=== PATIENT | female | born 1980 | race Caucasian/White ===

== ENCOUNTER 2021-10-10 14:51 | Inpatient (IN) | payer MEDICAID ==
[~2021-10-10] VITALS: Ht 167.6 cm; Wt 93.1 kg
--- NOTE | 2021-10-10 17:51 | EKG ---
[facility] [address] [place], [place] [address] Signed Sinus tachycardia Left axis deviation Anterior infarct , age undetermined Abnormal ECG No previous ECGs available Confirmed by ESTEFANY STALLWORTH MD ([id number]) on 10/10/2021 5:51:44 PM Electronically Signed By: ESTEFANY STALLWORTH MD 10/10/21 175 PATIENT NAME: HÉCTORSARAI CHITO Electrocardiogram DATE OF : 78 PHYSICIAN: ESTEFANY STALLWORTH MD REPORT #: [id number] REPORT IS CONFIDENTIAL AND NOT TO BE RELEASED WITHOUT AUTHORIZATION
--- NOTE | 2021-10-10 17:52 | EKG ---
[facility] [address] [facility] [place] [address] Signed Normal sinus rhythm Left anterior fascicular block Abnormal QRS-T angle, consider primary T wave abnormality Abnormal ECG When compared with ECG of 10-OCT-2021 15:07, (Unconfirmed) No significant change was found Confirmed by ESTEFANY STALLWORTH MD ([id number]) on 10/10/2021 5:51:51 PM Electronically Signed By: ESTEFANY STALLWORTH MD 10/10/21 175 PATIENT NAME: SARAI ANAYA CHITO Electrocardiogram DATE OF : 78 PHYSICIAN: ESTEFANY STALLWORTH MD REPORT #: [id number] REPORT IS CONFIDENTIAL AND NOT TO BE RELEASED WITHOUT AUTHORIZATION
--- NOTE | 2021-10-10 20:29 | NUR ---
DISCUSSED CHLORTHALIDONE 25MG TABLET AVAILABILITY WITH BARRY FROM PHARMACY AND DR STALLWORTH. PER DR STALLWORTH CANCEL ORDER AT THIS TIME.
--- NOTE | 2021-10-10 22:00 | NUR ---
PRIMARY RN REQUESTED MATAMOROS PLACEMENT. pt AGREEABLE AT THIS TIME. pt UP TO VOID AND BACK TO BED. PLACED 16Fr MATAMOROS PER PROTOCOL. DILUTE URINE RETURNED. pt RESTING IN BED. NO REQUESTS AT THIS TIME. CALL LIGHT WITHIN REACH.
--- NOTE | 2021-10-10 22:27 | NUR ---
IN TO UPDATE pt ON VISITOR POLICY. pt VERBALIZED UNDERSTANDING OF POLICY. REPORTED THAT HER MATAMOROS WAS LEAKING. REINFLATED HER MATAMOROS BALLON. FRESH LINENS. LARGE QUANTITY OF URINE OUT, MATAMOROS NOW DRAINING WELL. CALL LIGHT WITHIN REACH. pt SETTLED IN BED.
--- NOTE | 2021-10-10 23:06 | NUR ---
YPT ARRIVED ON UNIT WITH COMPLAINT OF 8/10 PAIN IN ABDOMEN, CHEST, AND HEAD. PT IS NAUSOUS. CONTACTED DR. STALLWORTH FOR GI COCKTAIL AND ZOFRAN. PT GIVEN PRN NORCO AND GI COCKTAIL. CHEST PAIN AND NAUSEA RESOLVED WITHIN 10 MINUTES OF GI COCKTAIL. PAIN REDUCED TO 6/10 WITHIN 1 HOUR POST NORCO. BUMEX DRIP STARTED, MATAMOROS INSERTED, UOP GREATER THAN 2L IN LAST 2.5 HOURS. PT HAS CRACKELS BILATERAL POSTERIOR BASES. O2 SATS DECREASED TO 85% ON RA, PLACED ON 2L VIA NC WITH SATS MAINTAINING 91-95%. PT RESTING QUIETLY WITH EYES CLOSED AT THIS TIME.
--- NOTE | 2021-10-11 01:36 | NUR ---
PT HAS HAD 3900cc UOP. DR. STALLWORTH AWARE AND INSTRUCTED TO PAUSE BUMEX DRIP AT THIS TIME. WILL REASSESS NEED FOR INFUSION IN THE MONRING. BUMEX DRIP STOPPED. WILL CONTINUE TO MONITOR.
--- NOTE | 2021-10-11 02:53 | NUR ---
PT EDUCATED ON IMPORTANCE OF STARTING DAILY WEIGHTS AT HOME AND WHEN TO CALL ME. PT VERBALIZES UNDERSTANDING AND ASKS APPROPRIATE QUESTIONS. WILL CONTINUE TO EDUCATION ON CHF.
--- NOTE | 2021-10-11 07:45 | NUR ---
Report recieved, care of patient assumed at this time.
--- NOTE | 2021-10-11 08:23 | NUR ---
PATIENT AWAKE AT SIDE OF BED. VITALS CHARTED. 250ML WATER PROVIDED. CALL LIGHT IN EASY REACH
--- NOTE | 2021-10-11 08:30 | NUR ---
PATIENTS BREAKFAST C/O BREAKFAST TOO COLD FOR HER LIKING. NEW TRAY ORDERED.
--- NOTE | 2021-10-11 09:12 | NUR ---
ASSESSMENT AND MEDICATION ADMINISTRATION COMPLETED. PT ALERT AND ORIENTED, EATING BREAKFAST, ANSWERING ALL QUESTIONS APPROPRAITELY. DENIES SHORTNESS OF BREATH OR PAIN, BUT DOES STATE NEUROPATHY IN HANDS REMAINS MORE UNCOMFORTABLE THAN HER BASELINE. LUNGS SOUNDS DIMINISHED IN BILATERAL BASES WITH SCATTERED FINE CRACKLES, UPPER AIR SAUCEDO ARE CLEAR. PLAN OF CARE FOR THE DAY ESTABLISHED. CALL LIGHT WITHIN REACH. PT DENIES FURTHER NEEDS AT THIS TIME.
--- NOTE | 2021-10-11 09:49 | NUR ---
PT NOW OM AIR. ENCOURAGED COUGHING AND DEEP BREATHING.
--- NOTE | 2021-10-11 11:29 | NUR ---
PT PLACED BACK ON BUMEX DRIP AFTER BUMEX BOLUS ADMINISTERED (SEE EMAR). PT UPDATED ON PLAN TO STAY ON BUMEX DRIP UNTIL SHE HAS 4 MORE LITERS OF URINARY OUTPUT. MAGNESIUM NOW INFUSING. ALL PT QUESTIONS ANSWERED. CALL LIGHT WITHIN REACH. NO FURTHER NEEDS AT THIS TIME.
--- NOTE | 2021-10-11 12:30 | NUR ---
Update from RN. Pt up in room. May transfer to the floor today. Status is improving.
--- NOTE | 2021-10-11 12:50 | NUR ---
PT AMBULATED TO BATHROOM. NO SHORTNESS OF BREATH WITH EXERTION. PT HAD LARGE BOWEL MOVEMENT. NOW SITTING UP AT SIDE OF BED TO FINISH LUNCH. BUMEX DRIP INFUSING. CALL LIGHT WITHIN REACH. WILL CONTINUE TO MONITOR.
--- NOTE | 2021-10-11 15:34 | NUR ---
ASSESSMNET COMPLETED. BUMEX DRIP DC'D. PT HAS HAD ABOUT 4 L OF URINARY OUTPUT SINCE BUMEX INITIATED. BILATERAL LUNG BASES DIM, NO CRACKLES HEARD ON AUSCULTATION. BREATHING EVEN AND UNLABORED. PT DENIES FEELING SHORT OF BREATH. PT HAS HAD 3 BOWEL MOVEMENTS SINCE MORNING DOSE OF LACTULOSE. ABDOMEN IS SOFT AND NOT DESTENDED EARLIER IN THE SHIFT. MEDICATIONS ADMINISTERED, CALL LIGHT WITHIN REACH. NO FURTHER NEEDS AT THIS TIME.
--- NOTE | 2021-10-11 17:19 | NUR ---
PT OFFERED A SHOWER. PT STATES, "I HAVE A VISITOR ON THE WAY" DISCUSSED VISITOR POLICY FOR COVID POSITIVE PT'S. AT THIS TIME PT REFUSED SHOWER AND STATES, "I DONT KNOW IF IM GOING TO BE ABLE TO STAY HERE IF I CANT HAVE VISITORS." THERAPEUTIC COMMUNICATION. CALL LIGHT WITHIN REACH. WILL CONTINUE TO MONITOR.
--- NOTE | 2021-10-11 18:10 | NUR ---
REPORT GIVEN TO ENRIQUE HOOKS ON THE MEDICAL FLOOR. PT TRANSPORTED BY ENRIQUE HOOKS, ALL BLEONGINGS TRANSPORTED WITH PT.
--- NOTE | 2021-10-11 18:34 | NUR ---
Patient transferred to medical floor from CCU. Patient alert and oriented x4. VItal stable. Patient denies sob and or chest pain. Oriented patient to room and call light. Patient denies needs. Personal supplies and call light within reach.
--- NOTE | 2021-10-11 19:47 | NUR ---
REPORT RECEIVED FROM DAY SHIFT RN. PT LYING IN BED RESTING WITH EYES CLOSED. RESPIRATIONS EVEN. CALL LIGHT IN REACH.
--- NOTE | 2021-10-11 22:00 | NUR ---
PT ALERT AND ORIENTED SITTING UP IN BED WATCHING TV. EVENING ASSESSMENT COMPLETE. SCHEDULED MEDS ADMINISTERD PER EMAR. PRN FOR PAIN ADMINISTERED FOR REPORTED 5/10 NEUROPATHIC PAIN IN BILAT HANDS AND FEET. PT ON RA. DENIES SOB. RESPIRATIONS EVEN. LUNGS DIM. MATAMOROS PATENT WITH CLEAR YELLOW URINE. BLE EDEMA NOTED. DISCUSSED FLUID RESTRICTION WITH PT. PT RECEPTIVE AND WITHIN 1600 ML FR AT THIS TIME. HARD CANDY PROVIDED FOR NICOTINE CRAVINGS, PT REFUSES PRN D/T N/V. PT DENIES QUESTIONS OR CONCERNS. CALL LIGHT IN REACH.
--- NOTE | 2021-10-11 22:46 | NUR ---
CALL LIGHT ANSWERED. IV PUMP ALARMING. DISTAL OCCLUSION. IV ANTIBIOTIC SWITCHED TO LEFT ARM REQUESTED. SANDWICH BOX PROVIDED WITH ALLOTTED WATER. CALL LIGHT IN REACH.
--- NOTE | 2021-10-12 01:24 | NUR ---
PT RESTING IN BED WITH EYES CLOSED. RESPIRATIONS EVEN. CALL LIGHT IN REACH.
--- NOTE | 2021-10-12 05:09 | NUR ---
PT IN BED WITH EYES CLOSED. HOB ELEVATED. RESPIRATIONS EVEN AND UNLABORED. MATAMOROS PATENT WITH CLEAR YELLOW URINE. CALL LIGHT IN REACH.
--- NOTE | 2021-10-12 06:42 | NUR ---
PT SITTING IN RECLINER. VS AND I&O OBTAINED. DAILY WEIGHT OBTAINED. PT REPORTS NEUROPATHIC PAIN 03/13. PRN FOR PAIN ADMINISTERED PER EMAR. PT REMAINS WITHIN 1600 ML FLUID RESTRICTION. IV IN LEFT FOREARM TENDER WITH SLIGHT REDNESS NOTED. IV DC'D WNL. PT DENIES SOB OR CHEST PAIN. PT AMB INDEPENDENTLY IN ROOM TO BR FOR AM CARES. DENIES FURTHER NEEDS. CALL LIGHT IN REACH.
--- NOTE | 2021-10-12 09:53 | NUR ---
THIS RN IN PTS ROOM TO GIVE PT HER MORNING MEDS WITH [facility] LEAD SOFTWARE TEST ENGINEER. PT LONI MCKOY IN CHAIR. PT ALERT AND ORIENTED. PT REPORTS THAT SHE STILL FEELS CONSTIPATED AND WOULD LIKE TO STILL HAVE BM MEDS. THIS RN TO HAVE MIRALAX ORDERED TO KEEP PT "REGULAR" PT REPORTS THAT SHE IS NOT PASSING GAS BUT HER LAST BM WAS 10/11.
--- NOTE | 2021-10-12 10:30 | NUR ---
Spoke with Hyun by phone. She states she lives in a homve with 3 steps. She is currently going through divorce. She would like to keep Rodrigue her as her emergency contact. She is attempting to change to [place] as she was living near [place] and uses [facility] from [facility]> She does not have a pcp and would like assist. She states she was told she needs to get a scales for the STOP LIGHT protocol and weigh daily. States she does not have the money to buy She plans on discharge to home when cleared. Boyfriend, Iván, will drive her home.
--- NOTE | 2021-10-12 11:30 | NUR ---
[facility]a [facility]. Pt scheduled to establish care with Dr. Erica Jimenez on 10/19/21 at 11:15. Called Kain Whalen from [facility] and she will see pt and give her a scales. Pt is working on changing her insurance over.
--- NOTE | 2021-10-12 12:14 | NUR ---
Certified Heart Failure Nurse Notes: Family Resource Specialist- not currently establishe with PCP: not currently established with a PCP. Agrees to follow up with one. respite coordinator is involved. Date of echocardiogram 10/11/21 EF 40-45% Admit Pro BNP elevated Social support system:Lives with her boyfriend and his ex-. She is new to this area. Does not drive due to low vision. Relied on medical transport in her former town. Weight monitoring: No scale present in home. Educated on how to weigh daily/ when to notify PCP Symptom management: Addressed monitoring and reporting changes in weight or symptoms. Her parents both had heart failure and she was familiar with symptoms. Diet: Does cook at home and recognizes she eats processed foods that may have a high sodium content. She would like to have a garden again to grow own produce. Medication routine: She had stopped her medications in past. Believes that stopping insulin and antidepressant was reason she lost 100lbs. Recommended that she discuss concerns of any medications with providers and look at alternatives with them. Tobacco: Reports she does not want to resume smoking and requested that she gets another cessation book that was given to her in CCU. Advanced directive: Not discussed at this initial visit Recommendations prior to discharge: Document ambulation oxygen saturations prior to discharge Absence of orthostatic hypotension. Discharge weight less than admit weight. Discharge BNP less than admit (as per [facility] Heart Failure DC Bundle) Barriers to self-care include:Transporation. Medication belief system. Dietary knowleldge Follow-up plans: Patient agrees to receive a follow up call from this service. Would be welcome for complimentary outpatient heart failure education. Teaching materials given today: Daily weight and symptom monitoring log, [facility] contact information Low Sodium Shopping list. Given [employer] digital scales and 7 day pill reminder box for home use.
--- NOTE | 2021-10-12 15:30 | NUR ---
THIS RN IN PTS ROOM AFTER CEHCKING ON PT AND PT REPORTING THAT SHE WAS HAVING SOME ITCHING AND STATED THAT SHE WAS NOTICING A "RED RASH" ON HER THIGHS. THIS RN NOTED THAT PT DID NOT APPEAR TO HAVE "RED RASH" BUT DID HAVE SPOTS WHERE SHE HAD BEEN ITCHING. THIS RN NOTED SCABS PRESENT ON HER ARMS. THIS RN PROVIDED PT WITH 50MG OF BENADRLY AND TOOK OUT PTS MATAMOROS. PT TOELRATED WELL. NO OTHER NEEDS THIS RN PROVIDED PT WITH HER BELONINGS THAT HER BF BROUGHT HER. THIS RN NOTED THAT PT HAD SNACKS IN A BAG THAT WERE NOT WITHIN PTS SODIUM.
--- NOTE | 2021-10-12 17:21 | NUR ---
OUTPATIENT CASE MANAGER BENITO AND INSTRUCTOR ALIS RN IN ROOM TO GIVE PT SCHEDULED MEDS.
--- NOTE | 2021-10-12 17:30 | NUR ---
PT CALLED TO TELL STAFF THAT DINNER WAS COLD AND SHE DID NOT GET EVERYTHING ON THE MENU. THIS BALLOON DESIGN PRINTER ASKED KITCHEN STAFF WHY THE PT DID NOT RECIEVE THE GRAPES FOR DINNER AND KITCHEN STAFF SAID THERE ARE NO GRAPES TO GIVE TO ANY PT. THE PT WAS NOT HAPPY WITH THE OTHER OPTION OF A FRUIT CUP. PT WAS UPSET AT THE SITUATION, THIS BALLOON DESIGN PRINTER OFFERED TO HAVE ENRIQUE MONTANEZ COME TALK WITH THE PT ABOUT ANY OTHER OPTIONS AVAILABLE TO MAKE THE SITUATION RIGHT. THE PT DECLINED. ENRIQUE MONTANEZ UPDATED ON THE SITUATION.
--- NOTE | 2021-10-12 19:47 | NUR ---
REPORT RECEIVED FROM DAY SHIFT RN. PT LYING IN BED ALERT AND ORIENTED. DENIES NEEDS AT THIS TIME. WHITE BOARD UPDATED. CALL LIGHT IN REACH.
--- NOTE | 2021-10-12 21:45 | NUR ---
EVENING ASSESSMENT COMPLETE. SCHEDULED MEDS ADMINSITERED PER EMAR. PT DROWSY. DENIES PAIN OR NAUSEA. DENIES CHEST PAIN OR SOB. IV ABX INFUSING WNL. PT VOID QS. FRESH WATER PROVIDED. PT REMAINS WITHIN FLUID RESTRICTION. NO QUESTIONS OR CONCERNS AT THIS TIME. CALL LIGHT IN REACH.
--- NOTE | 2021-10-13 01:04 | NUR ---
PT RESTING IN BED. EYES CLOSED. RESPIRATIONS EVEN. CALL LIGHT IN REACH.
--- NOTE | 2021-10-13 04:29 | NUR ---
PT RESTING IN BED WITH EYES CLOSED. RESPIRATIONS EVEN. CALL LIGHT IN REACH.
--- NOTE | 2021-10-13 06:40 | NUR ---
VS AND I&O COMPLETE. DAILY WEIGHT OBTAINED. PRN FOR UPPER AND LOWER EXTREMITY PAIN ADMINISTERED PER EMAR. ICE CHIPS AND CRACKERS PROVIDED.
--- NOTE | 2021-10-13 07:32 | NUR ---
this rn received report from len santiago. pt appears to be resting at this time with respirations noted.
--- NOTE | 2021-10-13 09:00 | NUR ---
PT REPORTING TO GITA NUNEZ THAT HER COFFEE IS COLD. THIS RN HAD HER REMOVE PTS OLD COFFEE AND GIVE HER A NEW HALF CUP OF COFFEE. THIS RN CHECKED ON PT AND PT REPORTS THAT SHE HAS BEEN HUNGRY SINCE SHE GOT ADMITTED. THIS RN EDUCATED PT ABOUT HOW WITH HEART FAILURE SHE NEEDS TO WATCH HER QUANITY IN REGARD TO SODIUM. PT STATES "I'M A SOUTHERN GIRL AND THIS IS REALLY HARD" PT NOT RECEPTIVE TO TEACHING.
--- NOTE | 2021-10-13 09:35 | NUR ---
THIS RN IN PTS ROOM TO GIVE PT HER MORNING MEDS. PT DRESSED. PT STATES THAT SHE IS READY TO LEAVE BUT STATES THAT SHE WILL STAY UNTIL 1100 TO SEE MD. THIS RN UPDATED MD.
[2021-10-13] MEDS ORDERED: LOSARTAN POTASS50 MG PO (10:12)
[2021-10-13] MEDS ORDERED: CARVEDILOL6.25 MG PO (10:12)
[2021-10-13] MEDS ORDERED: LASIX20 MG PO (10:13)
[2021-10-13] MEDS ORDERED: METFORMIN HCL500 MG PO (10:13)
[2021-10-13] MEDS ORDERED: CEPHALEXIN500 MG PO (10:14)
--- NOTE | 2021-10-13 10:15 | NUR ---
PT NOTED TO BE WALKING THE HALLS AT THIS TIME. THIS RN ASKED IF PT WAS LEAVING. PT APPEARED FRAZZLED AND STATES THAT SHE JUST CANT WAIT ANY LONGER. THIS RN UPDATED MD. ABLE TO GET A PRINTED PERSCRIPTION, DISCUSSED WITH PT TO TAKE MEDS AND TO FOLLOW UP WITH NEW PCP. PT TOOK OUT HER OWN IV, NO IV IN PLACE ON DISCHARGE.
--- NOTE | 2021-10-13 10:30 | NUR ---
Pt dressed and standing in the wells. Rn requesting pt wear a mask. Pt stating she has to leave now. Staff are asking if she could wait a few minutes while finishes her prescriptions. Pt stating she has to leave now as her boyfriend is in the parking lot and cannot wait. He needs to return to work. I asked pt if there is anything else she needs and she denies. I gave her the time and date of her new pcp appt and wrote it on her AMA sheet.
== END 2021-10-13 10:15 | disposition left against medical advice (07) | DRG 291 ==
LOC: ED 14:51 → CCU 18:52 → MS 18:52
PROVIDERS: ADMIT Internal Medicine; ATTEND Internal Medicine
PROC: 8E0ZXY6 Isolation (ICD-10-PCS; principal; 2021-10-10)
DX: I11.0 Hypertensive heart disease with heart failure (principal); I50.43 Acute on chronic combined systolic (congestive) and diastolic (congestive) heart failure; U07.1 COVID-19; N10 Acute pyelonephritis; D64.9 Anemia, unspecified; F41.8 Other specified anxiety disorders; M54.9 Dorsalgia, unspecified; G89.29 Other chronic pain; K76.1 Chronic passive congestion of liver; E11.65 Type 2 diabetes mellitus with hyperglycemia; M79.7 Fibromyalgia; K59.00 Constipation, unspecified; F17.210 Nicotine dependence, cigarettes, uncomplicated; G25.81 Restless legs syndrome; Z98.890 Other specified postprocedural states
CPT/HCPCS: 36415; 71045; 71275; 74174; 80048; 80053; 81001; 82728; 83036; 83550; 83735; 83880; 84443; 84484; 84703; 85025; 93005; 93010; 93306; 94667; 94668; 99285-25; 99406; C9803; J0696; J1170; J1650; J1940; J2405; J3475; J3490; Q0163; Q9967; U0003

== ENCOUNTER 2021-10-18 23:37 | Emergency (ER) | payer MEDICAID ==
[~2021-10-18] VITALS: Ht 167.6 cm; Wt 93.0 kg
[~2021-10-18 23:37] MED LIST: CARVEDILOL6.25 MG PO; CEPHALEXIN500 MG PO; LASIX20 MG PO; LOSARTAN POTASS50 MG PO; METFORMIN HCL500 MG PO
--- OUTSIDE RECORDS SUMMARY | 2021-10-18 23:44 | XMS ---
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 Marco has no Care Guidelines for this patient. [place] [facility] MO.) [facility] NOTE: Visits indicate total known visits. ED/C VISIT TRACKING (12 MO.) [facility] COMPLAINT: - SOB 10/10/2021 14:53 [facility] [place] TYPE: Emergency COMPLAINT: - BODY SWELLING,DIFF BREATHING INPATIENT VISIT TRACKING (12 MO.) 10/10/2021 18:52 [facility] [place] TYPE: Medical Surgical COMPLAINT: - CHF DIAGNOSES: - Acute on chronic combined systolic (congestive) and diastolic (congestive) heart failure - Restless legs syndrome - Other specified postprocedural states - Acute on chronic combined systolic (congestive) and diastolic (congestive) heart failure - Heart failure, unspecified - Anemia, unspecified - Nicotine dependence, cigarettes, uncomplicated - Fibromyalgia - Constipation, unspecified - Hypertensive heart disease with heart failure - Type 2 diabetes mellitus with hyperglycemia - Other chronic pain - Restless legs syndrome - Other chronic pain - Type 2 diabetes mellitus with hyperglycemia - Acute pyelonephritis - Fibromyalgia - Other specified anxiety disorders - Anemia, unspecified - Other specified postprocedural states - Dorsalgia, unspecified - Acute pyelonephritis - Chronic passive congestion of liver - COVID-19 - Chronic passive congestion of liver - Constipation, unspecified - Nicotine dependence, cigarettes, uncomplicated - Hypertensive heart disease with heart failure - Other specified anxiety disorders - Dorsalgia, unspecified - COVID-19 [email or web address]
[2021-10-19] MEDS ORDERED: LASIX20 MG PO (01:30)
--- NOTE | 2021-10-19 07:20 | EKG ---
[facility] [address] [place] [address] Signed Sinus tachycardia Possible Left atrial enlargement Left axis deviation Left ventricular hypertrophy with repolarization abnormality ( R in aVL ) Abnormal ECG When compared with ECG of 10-OCT-2021 16:02, No significant change was found Confirmed by JAYDE AVENDAÑO MD ([id number]) on 10/19/2021 7:20:31 AM Electronically Signed By: JAYDE AVENDAÑO MD 10/19/21 0720 PATIENT NAME: MARISOL ANAYA CHITO Electrocardiogram DATE OF : 78 PHYSICIAN: JAYDE AVENDAÑO MD REPORT #: [id number] REPORT IS CONFIDENTIAL AND NOT TO BE RELEASED WITHOUT AUTHORIZATION
--- NOTE | 2021-10-21 12:38 | NUR ---
Hyun Felix she did return my calls today. She states insurance finally paying for medications and she has filled them all. Did attend Dr Jimenez visit and has another visit in November for after her insurance will cover. She is feeling "really good right now". Weight stable since ED visit. Scheduled to come in for HF complimentary education visit Oct 26.
== END 2021-10-19 01:49 | disposition home or self-care (01) ==
LOC: ED 23:37
DX: I50.9 Heart failure, unspecified (principal); E11.9 Type 2 diabetes mellitus without complications; G25.81 Restless legs syndrome; Z88.8 Allergy status to other drugs, medicaments and biological substances
CPT/HCPCS: 36415; 71045; 80053; 81001; 83735; 83880; 84484; 85025; 85610; 93005; 93010; 96374; 96375; 99285-25; J1940; J2270

== ENCOUNTER 2021-12-25 19:17 | Emergency (ER) | payer MEDICAID ==
[~2021-12-25] VITALS: Ht 167.6 cm; Wt 90.7 kg
--- OUTSIDE RECORDS SUMMARY | 2021-12-25 19:24 | XMS ---
PreManage Notification: MARISOL ANAYA Security Media Associate Events No recent Security Events currently on file CRITERIA MET - [facility] - Has Care Guidelines CARE PROVIDERS There are no care providers on record at this time. Marco has no Care Guidelines for this patient. Care History Medical/Surgical 10/21/2021 [facility] Patient was to establish care with Dr. Jimenez on 10/26/2021, but her OHP will not be active until 11/02/2021. I have requested they change date for first available in November 2021. Lucas. VISIT COUNT (12 MO.) [address] [facility]. TOTAL 3 NOTE: Visits indicate total known visits. ED/UCC VISIT TRACKING (12 MO.) 12/25/2021 19:18 [facility] [place] TYPE: Emergency COMPLAINT: - CHEST PAIN 10/18/2021 23:38 [facility] [place] TYPE: Emergency COMPLAINT: - SOB DIAGNOSES: - Restless legs syndrome - Shortness of breath - Heart failure, unspecified - Allergy status to other drugs, medicaments and biological substances - Type 2 diabetes mellitus without complications 10/10/2021 14:53 [facility] [place] TYPE: Emergency [...] anxiety disorders - Dorsalgia, unspecified - COVID-19 [email or web address]
[2021-12-25] MEDS ORDERED: CARVEDILOL6.25 MG PO ×2 (19:29→21:45)
[2021-12-25] MEDS ORDERED: LOSARTAN POTASS50 MG PO ×2 (19:29→21:45)
[2021-12-25] MEDS ORDERED: LASIX20 MG PO (21:45)
[2021-12-25] MEDS ORDERED: POTASSIUM CHLO10 MEQ PO (21:45)
--- NOTE | 2021-12-29 19:05 | EKG ---
[facility] [address] [facility] [place] [address] Signed Sinus tachycardia Possible Left atrial enlargement Left anterior fascicular block Abnormal QRS-T angle, consider primary T wave abnormality Abnormal ECG When compared with ECG of 18-OCT-2021 23:42, No significant change was found Confirmed by ESTEFANY STALLWORTH MD ([id number]) on 12/29/2021 7:04:57 PM Electronically Signed By: ESTEFANY STALLWORTH MD 12/29/21 1905 PATIENT NAME: HÉCTORMARISOL CHITO Electrocardiogram DATE OF : 78 PHYSICIAN: ESTEFANY STALLWORTH MD REPORT #: [id number] REPORT IS CONFIDENTIAL AND NOT TO BE RELEASED WITHOUT AUTHORIZATION
== END 2021-12-25 21:59 | disposition home or self-care (01) ==
LOC: ED 19:17
DX: I11.0 Hypertensive heart disease with heart failure (principal); I50.9 Heart failure, unspecified; F15.10 Other stimulant abuse, uncomplicated; G25.81 Restless legs syndrome; E11.9 Type 2 diabetes mellitus without complications; Z88.6 Allergy status to analgesic agent; Z88.8 Allergy status to other drugs, medicaments and biological substances
CPT/HCPCS: 36415; 71045; 80053; 81001; 83735; 83880; 84484; 85025; 85610; 85730; 93005; 93010; 96374; 96375; 99285-25; A9270; J1885; J1940

== ENCOUNTER 2022-01-08 14:34 | Emergency (ER) | payer MEDICAID ==
[~2022-01-08] VITALS: Ht 167.6 cm; Wt 90.7 kg
[~2022-01-08 14:34] MED LIST changes: +POTASSIUM CHLO10 MEQ PO
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
[2022-01-08] MEDS ORDERED: LOSARTAN POTASS50 MG PO (15:12)
[2022-01-08] MEDS ORDERED: CARVEDILOL6.25 MG PO (15:12)
[2022-01-08] MEDS ORDERED: KLOR-CON 1010 MEQ PO (15:12)
[2022-01-08] MEDS ORDERED: FUROSEMIDE20 MG PO (15:12)
== END 2022-01-08 15:28 | disposition home or self-care (01) ==
LOC: ED 14:34
DX: I11.0 Hypertensive heart disease with heart failure (principal); I50.9 Heart failure, unspecified; Z04.3 Encounter for examination and observation following other accident; E11.9 Type 2 diabetes mellitus without complications; G25.81 Restless legs syndrome; Z88.8 Allergy status to other drugs, medicaments and biological substances; Z79.899 Other long term (current) drug therapy
CPT/HCPCS: 99283

== ENCOUNTER 2022-02-02 07:27 | Emergency (ER) | payer OTHER ==
[~2022-02-02] VITALS: Ht 167.6 cm; Wt 88.5 kg
[~2022-02-02 07:27] MED LIST changes: +FUROSEMIDE20 MG PO; +KLOR-CON 1010 MEQ PO
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
--- NOTE | 2022-02-03 07:15 | EKG ---
[facility] [address] [facility] [place] [address] Signed Normal sinus rhythm Possible Left atrial enlargement Left anterior fascicular block Left ventricular hypertrophy ( R in aVL , Khris product ) Prolonged QT Abnormal ECG When compared with ECG of 25-DEC-2021 19:20, No significant change was found Confirmed by JAYDE AVENDAÑO MD ([id number]) on 02/03/2022 7:14:57 AM Electronically Signed By: JAYDE AVENDAÑO MD 02/03/22 0715 PATIENT NAME: MARISOL ANAYA Electrocardiogram DATE OF : 78 PHYSICIAN: JAYDE AVENDAÑO MD REPORT #: [id number] REPORT IS CONFIDENTIAL AND NOT TO BE RELEASED WITHOUT AUTHORIZATION
== END 2022-02-02 10:25 | disposition home or self-care (01) ==
LOC: ED 07:27
DX: R07.9 Chest pain, unspecified (principal); S60.221A Contusion of right hand, initial encounter; S00.83XA Contusion of other part of head, initial encounter; E11.9 Type 2 diabetes mellitus without complications; I50.9 Heart failure, unspecified; Z88.6 Allergy status to analgesic agent; Z88.8 Allergy status to other drugs, medicaments and biological substances; Z79.899 Other long term (current) drug therapy; Y04.2XXA Assault by strike against or bumped into by another person, initial encounter
CPT/HCPCS: 36415; 71045; 73130; 80053; 84484; 85025; 93005; 93010; 96374; 99285-25; A9270; J1885

== ENCOUNTER 2022-04-16 18:28 | Emergency (ER) | payer OTHER ==
[~2022-04-16] VITALS: Ht 167.6 cm; Wt 88.6 kg
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
[2022-04-16] MEDS ORDERED: POTASSIUM CHLO10 MEQ PO (22:22)
[2022-04-16] MEDS ORDERED: LASIX20 MG PO (22:22)
[2022-04-16] MEDS ORDERED: COREG6.25 MG PO (22:22)
[2022-04-16] MEDS ORDERED: LOSARTAN POTASS50 MG PO (22:22)
--- NOTE | 2022-04-17 07:15 | EKG ---
[facility] [address] [place] [address] Signed Sinus tachycardia Possible Left atrial enlargement Left anterior fascicular block Left ventricular hypertrophy with repolarization abnormality ( R in aVL , Franklin product ) Abnormal ECG When compared with ECG of 02-FEB-2022 07:27, No significant change was found Confirmed by JAYDE AVENDAÑO MD ([id number]) on 04/17/2022 7:14:58 AM Electronically Signed By: JAYDE AVENDAÑO MD 04/17/22 0715 PATIENT NAME: MARISOL ANAYA Electrocardiogram DATE OF : 78 PHYSICIAN: JAYDE AVENDAÑO MD REPORT #: [id number] REPORT IS CONFIDENTIAL AND NOT TO BE RELEASED WITHOUT AUTHORIZATION
== END 2022-04-16 22:30 | disposition home or self-care (01) ==
LOC: ED 18:28
DX: R55 Syncope and collapse (principal); F15.90 Other stimulant use, unspecified, uncomplicated; E11.9 Type 2 diabetes mellitus without complications; I50.9 Heart failure, unspecified; Z88.6 Allergy status to analgesic agent; Z79.899 Other long term (current) drug therapy
CPT/HCPCS: 36415; 80053; 81001; 83735; 83880; 84484; 84703; 85025; 93005; 93010; 96360; 96361; 99284-25; J7030